=== PATIENT | male | born 1935 | race Caucasian/White ===

== ENCOUNTER → 2018-04-09 | Outpatient (CLI) | payer MEDICARE, BC | LOC: RAD 08:51 | DX: M79.645 Pain in left finger(s) (principal) ==

== ENCOUNTER 2020-06-06 10:00 | Outpatient (RCR) | payer MEDICARE, BC | END 2020-06-23 | disposition home or self-care (01) | LOC: PT | DX: M25.512 Pain in left shoulder (principal) ==

== ENCOUNTER 2020-07-06 16:40 | Outpatient (RCR) | payer MEDICARE, BC | END 2020-09-27 | disposition home or self-care (01) | LOC: PT | DX: M25.512 Pain in left shoulder (principal) ==

== ENCOUNTER → 2020-08-03 | Outpatient (CLI) | payer MEDICARE, BC | LOC: RAD 09:02 | DX: Z96.612 Presence of left artificial shoulder joint (principal) ==